=== PATIENT | female | born 2000 | race Caucasian/White ===

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

== ENCOUNTER 2021-08-15 11:12 | Emergency (ER) | payer MEDICAID ==
[~2021-08-15] VITALS: Ht 142.2 cm; Wt 61.2 kg
[2021-08-15 11:36] VITALS: BP 140/89
[2021-08-15] MEDS ORDERED: AMOX-277 PO (11:44)
[2021-08-15] MEDS ORDERED: ACET-1158 PO (11:44)
[2021-08-15] MEDS ORDERED: PRED20TA2 PO (11:44)
[2021-08-15] MEDS ORDERED: cefTRIAXone SOD 1,000 MG VL IM ONE (11:45)
[2021-08-15] MEDS ORDERED: methylPREDNISolone SOD SUCC 125 MG/2 ML VL IM ONE (11:45)
== END 2021-08-15 12:51 | disposition home or self-care (01) ==
LOC: ER 11:12
DX: J02.9 Acute pharyngitis, unspecified (principal); M79.10 Myalgia, unspecified site; Z79.2 Long term (current) use of antibiotics; Z79.899 Other long term (current) drug therapy; Z20.822 Contact with and (suspected) exposure to COVID-19
CPT/HCPCS: 36415; 87426; 96372; 99284; J0696; J2930

== ENCOUNTER 2021-11-20 15:31 | Emergency (ER) | payer MEDICAID ==
[~2021-11-20] VITALS: Ht 142.2 cm; Wt 68.0 kg
[~2021-11-20 15:31] MED LIST: ACET-1158 PO; AMOX-277 PO; PRED20TA2 PO
[2021-11-20 18:14] LABS: Urine Bacteria FEW /hpf (None Seen); Urine Blood Negative /uL (Negative); Urine Specific Gravity 1.004 (1.001-1.035); Urine WBC 4 /hpf (0 - 5)
[2021-11-20] MEDS ORDERED: NITR-87 PO (20:06)
[2021-11-20 21:10] VITALS: BP 112/75
== END 2021-11-20 21:12 | disposition home or self-care (01) ==
LOC: ER 15:31
DX: O20.0 Threatened abortion (principal); O23.41 Unspecified infection of urinary tract in pregnancy, first trimester; N39.0 Urinary tract infection, site not specified; Z3A.01 Less than 8 weeks gestation of pregnancy
CPT/HCPCS: 36415; 76801; 76817; 81001; 81025; 84702

== ENCOUNTER 2021-12-27 16:49 | Emergency (ER) | payer MEDICAID ==
[~2021-12-27] VITALS: Ht 142.2 cm; Wt 150.0 kg
[~2021-12-27 16:49] MED LIST changes: +NITR-87 PO
[2021-12-27 17:00] VITALS: BP 108/63
== END 2021-12-27 20:07 | disposition left against medical advice (07) ==
LOC: EDSEX 16:49 → EDBD 16:49 → ER 16:49
DX: O26.891 Other specified pregnancy related conditions, first trimester (principal); R10.2 Pelvic and perineal pain; Z3A.10 10 weeks gestation of pregnancy; Z53.21 Procedure and treatment not carried out due to patient leaving prior to being seen by health care provider